=== PATIENT | male | born 1990 | race Caucasian/White ===

== ENCOUNTER 2017-03-06 01:56 | Emergency (ER) | payer MEDICAID, OTHER ==
[~2017-03-06] VITALS: Ht 177.8 cm; Wt 92.0 kg
[2017-03-06 02:05] VITALS: BP 135/76; PULSE 96; RESP 20; TEMP 98.5; O2SAT 96
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
== END 2017-03-06 06:41 | disposition home or self-care (01) ==
LOC: NEPE 01:56
DX: F43.20 Adjustment disorder, unspecified (principal); F17.210 Nicotine dependence, cigarettes, uncomplicated
CPT/HCPCS: 99284

== ENCOUNTER 2017-05-21 21:24 | Emergency (ER) | payer MEDICAID, OTHER ==
[~2017-05-21] VITALS: Ht 177.8 cm; Wt 84.0 kg
[2017-05-21 21:25] VITALS: BP 138/86; PULSE 125; RESP 16; TEMP 99; O2SAT 94
== END 2017-05-22 01:30 | disposition left against medical advice (07) ==
LOC: NED 21:24
DX: Z53.29 Procedure and treatment not carried out because of patient's decision for other reasons (principal)
CPT/HCPCS: 99281

== ENCOUNTER 2017-08-27 08:53 | Emergency (ER) | payer OTHER ==
[~2017-08-27] VITALS: Ht 180.3 cm; Wt 78.0 kg
[2017-08-27 09:47] VITALS: BP 138/83; PULSE 89; RESP 17; TEMP 98; O2SAT 99
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
[2017-08-27 11:08] LABS: AUTOMATED NEUTROPHIL # 5.3 TH/MM3 (1.8-7.7); BASOPHIL % 0.3 % (0.0-2.0); EOSINOPHIL % 0.1 % (0.0-4.0); HEMATOCRIT 49.1 % (39.0-51.0); HEMO FLAGS DIFF FINAL; LYMPH % 26.2 % (9.0-44.0); MEAN CELL VOLUME 86.9 FL (80.0-100.0); MEAN CORPUSCULAR HEMOGLOBIN 28.9 PG (27.0-34.0); MEAN CORPUSCULAR HGB CONC 33.2 % (32.0-36.0); MONO % 5.2 % (0.0-8.0); NEUT % 68.2 % (16.0-70.0); PLATELET COUNT 273 TH/MM3 (150-450); RED BLOOD COUNT 5.66 MIL/MM3 (4.50-5.90); RED CELL DISTRIBUTION WIDTH 13.1 % (11.6-17.2); WHITE BLOOD COUNT 7.7 TH/MM3 (4.0-11.0)
[2017-08-27 11:34] LABS: ALT (GPT) 32 U/L (12-78); ANION GAP 9 MEQ/L (5-15); AST (GOT) 15 U/L (15-37); BICARBONATE 23.8 MEQ/L (21.0-32.0); BLOOD UREA NITROGEN 9 MG/DL (7-18); CHLORIDE 107 MEQ/L (98-107); GLOMERULAR FILTRATION RATE 89 ML/MIN (>89); POTASSIUM 3.3 MEQ/L (3.5-5.1); SODIUM (NA) 140 MEQ/L (136-145)
[2017-08-27 11:36] LABS: ALKALINE PHOSPHATASE 111 U/L (45-117); TOTAL BILIRUBIN ADULT 0.3 MG/DL (0.2-1.0)
[2017-08-27] MEDS ORDERED: LORazepam 2 MG/ML VIAL IM ONE (12:30)
[2017-08-27] MEDS ORDERED: HALOPERIDOL LACTATE 5 MG/ML AMP IM ONE (12:30)
[2017-08-27 14:18] VITALS: BP 122/81; TEMP 97.8
[2017-08-27 18:34] VITALS: BP 116/68; PULSE 57; RESP 18; O2SAT 97
[2017-08-27 22:01] VITALS: BP 114/62; PULSE 79; RESP 18; O2SAT 99
[2017-08-28 02:00] VITALS: BP 108/59; PULSE 54; RESP 18; TEMP 98.7; O2SAT 98
[2017-08-28 06:17] VITALS: BP 118/61; PULSE 65; RESP 18; TEMP 98.1; O2SAT 99
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
--- NOTE | 2017-08-28 10:32 | PD ---
Physical Exam Time Seen by Provider: 10:30 Narrative Please refer to previous providers documentation for details surrounding the patient's current visit. Data Data Last Documented VS Vital Signs Date Time Temp Pulse Resp B/P (MAP) Pulse Ox O2 Delivery O2 Flow Rate FiO2 08/28/17 06:17 98.1 65 18 118/61 (80) 99 Room Air Orders Orders Complete Blood Count With Diff (08/27/17 10:29) Comprehensive Metabolic Panel (08/27/17 10:29) Psych Screen (08/27/17 10:29) Drug Screen, Random Urine (08/27/17 10:29) Haloperidol Inj (Haldol Inj) (08/27/17 12:30) Lorazepam Inj (Ativan Inj) (08/27/17 12:30) Diet Regular Basic (08/27/17 Dinner) Diet Regular Basic (08/28/17 Breakfast) Diet Regular Basic (08/28/17 Lunch) Labs Laboratory Tests Test 08/27/17 10:40 White Blood Count 7.7 TH/MM3 Red Blood Count 5.66 MIL/MM3 Hemoglobin 16.3 GM/DL Hematocrit 49.1 % Mean Corpuscular Volume 86.9 FL Mean Corpuscular Hemoglobin 28.9 PG Mean Corpuscular Hemoglobin Concent 33.2 % Red Cell Distribution Width 13.1 % Platelet Count 273 TH/MM3 Mean Platelet Volume 9.4 FL Neutrophils (%) (Auto) 68.2 % Lymphocytes (%) (Auto) 26.2 % Monocytes (%) (Auto) 5.2 % Eosinophils (%) (Auto) 0.1 % Basophils (%) (Auto) 0.3 % Neutrophils # (Auto) 5.3 TH/MM3 Lymphocytes # (Auto) 2.0 TH/MM3 Monocytes # (Auto) 0.4 TH/MM3 Eosinophils # (Auto) 0.0 TH/MM3 Basophils # (Auto) 0.0 TH/MM3 CBC Comment DIFF FINAL Differential Comment Blood Urea Nitrogen 9 MG/DL Creatinine 1.00 MG/DL Random Glucose 94 MG/DL Total Protein 7.6 GM/DL Albumin 4.1 GM/DL Calcium Level 8.7 MG/DL Alkaline Phosphatase 111 U/L Aspartate Amino Transf (AST/SGOT) 15 U/L Alanine Aminotransferase (ALT/SGPT) 32 U/L Total Bilirubin 0.3 MG/DL Sodium Level 140 MEQ/L Potassium Level 3.3 MEQ/L Chloride Level 107 MEQ/L Carbon Dioxide Level 23.8 MEQ/L Anion Gap 9 MEQ/L Estimat Glomerular Filtration Rate 89 ML/MIN Urine Opiates Screen NEG Urine Barbiturates Screen NEG Urine Amphetamines Screen NEG Urine Benzodiazepines Screen NEG Urine Cocaine Screen POS Urine Cannabinoids Screen NEG MDM Medical Record Reviewed: Yes Supervised Visit with PRAVEENA: No Narrative Course Patient presented to the emergency department under an ExParte. He has been seen and evaluated by psychiatry. His mother has been contacted by psychiatry. He'll be discharged with outpatient resources for drug rehabilitation. With no further medical needs, he'll be discharged at this time. Diagnosis Primary Impression: Substance use disorder Referrals: [facility] (Out patient) Patient Instructions: Cocaine Abuse (ED), General Instructions Additional Instruction: Stop using cocaine and other illegal drugs Follow-up primary care provider Utilize outpatient resources to help with your addiction Return immediately with any acute worsening of symptoms. Med/Other Pt SpecificInfo: No Change to Meds Scripts No Active Prescriptions or Reported Meds Disposition: 01 DISCHARGE HOME Condition: Stable Janet Nobles Aug 28, 2017 10:32
== END 2017-08-28 11:12 | disposition home or self-care (01) ==
LOC: NEPE 08:53 → NEPJ 08-28 11:12
DX: F14.10 Cocaine abuse, uncomplicated (principal); F17.200 Nicotine dependence, unspecified, uncomplicated
CPT/HCPCS: 80053; 80307; 85025; 96372; 99284; J1630; J2060

== ENCOUNTER 2017-12-18 15:35 | Emergency (ER) | payer OTHER ==
[2017-12-18 16:01] VITALS: BP 158/98; PULSE 108; RESP 18; TEMP 97.9; O2SAT 99
[2017-12-18 17:12] LABS: AUTOMATED NEUTROPHIL # 8.1 TH/MM3 (1.8-7.7); BASOPHIL % 0.4 % (0.0-2.0); EOSINOPHIL % 0.3 % (0.0-4.0); HEMATOCRIT 48.6 % (39.0-51.0); HEMOGLOBIN 16.6 GM/DL (13.0-17.0); LYMPH % 16.3 % (9.0-44.0); LYMPHOCYTE # 1.8 TH/MM3 (1.0-4.8); MEAN CELL VOLUME 85.8 FL (80.0-100.0); MEAN CORPUSCULAR HEMOGLOBIN 29.4 PG (27.0-34.0); MEAN CORPUSCULAR HGB CONC 34.2 % (32.0-36.0); MONO % 8.4 % (0.0-8.0); MONOCYTE # 0.9 TH/MM3 (0-0.9); NEUT % 74.6 % (16.0-70.0); PLATELET COUNT 276 TH/MM3 (150-450); RED BLOOD COUNT 5.66 MIL/MM3 (4.50-5.90); RED CELL DISTRIBUTION WIDTH 13.1 % (11.6-17.2); WHITE BLOOD COUNT 10.9 TH/MM3 (4.0-11.0)
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
[2017-12-18 17:29] LABS: ALBUMIN 4.4 GM/DL (3.4-5.0); ALT (GPT) 23 U/L (12-78); AST (GOT) 20 U/L (15-37); BICARBONATE 23.7 MEQ/L (21.0-32.0); BLOOD UREA NITROGEN 11 MG/DL (7-18); CALCIUM 9.1 MG/DL (8.5-10.1); CHLORIDE 105 MEQ/L (98-107); CREATININE 0.93 MG/DL (0.60-1.30); GLOMERULAR FILTRATION RATE 97 ML/MIN (>89); GLUCOSE,RANDOM 92 MG/DL (74-106); SODIUM (NA) 139 MEQ/L (136-145)
[2017-12-18 17:38] LABS: ALKALINE PHOSPHATASE 140 U/L (45-117); TOTAL BILIRUBIN ADULT 0.7 MG/DL (0.2-1.0)
--- NOTE | 2017-12-18 17:51 | PD ---
Data Data Last Documented VS Vital Signs Date Time Temp Pulse Resp B/P (MAP) Pulse Ox O2 Delivery O2 Flow Rate FiO2 12/18/17 16:01 97.9 108 18 158/98 (118) 99 Orders Orders Complete Blood Count With Diff (12/18/17 16:14) Comprehensive Metabolic Panel (12/18/17 16:14) Thyroid Stimulating Hormone (12/18/17 16:14) Psych Screen (12/18/17 16:14) Drug Screen, Random Urine (12/18/17 16:14) Alcohol (Ethanol) (12/18/17 16:14) Labs Laboratory Tests Test 12/18/17 16:10 White Blood Count 10.9 TH/MM3 Red Blood Count 5.66 MIL/MM3 Hemoglobin 16.6 GM/DL Hematocrit 48.6 % Mean Corpuscular Volume 85.8 FL Mean Corpuscular Hemoglobin 29.4 PG Mean Corpuscular Hemoglobin Concent 34.2 % Red Cell Distribution Width 13.1 % Platelet Count 276 TH/MM3 Mean Platelet Volume 9.0 FL Neutrophils (%) (Auto) 74.6 % Lymphocytes (%) (Auto) 16.3 % Monocytes (%) (Auto) 8.4 % Eosinophils (%) (Auto) 0.3 % Basophils (%) (Auto) 0.4 % Neutrophils # (Auto) 8.1 TH/MM3 Lymphocytes # (Auto) 1.8 TH/MM3 Monocytes # (Auto) 0.9 TH/MM3 Eosinophils # (Auto) 0.0 TH/MM3 Basophils # (Auto) 0.0 TH/MM3 CBC Comment DIFF FINAL Differential Comment Blood Urea Nitrogen 11 MG/DL Creatinine 0.93 MG/DL Random Glucose 92 MG/DL Total Protein 8.0 GM/DL Albumin 4.4 GM/DL Calcium Level 9.1 MG/DL Alkaline Phosphatase 140 U/L Aspartate Amino Transf (AST/SGOT) 20 U/L Alanine Aminotransferase (ALT/SGPT) 23 U/L Total Bilirubin 0.7 MG/DL Sodium Level 139 MEQ/L Potassium Level 3.7 MEQ/L Chloride Level 105 MEQ/L Carbon Dioxide Level 23.7 MEQ/L Anion Gap 10 MEQ/L Estimat Glomerular Filtration Rate 97 ML/MIN Thyroid Stimulating Hormone 3rd Gen 1.430 uIU/ML Ethyl Alcohol Level 17 MG/DL [facility] Supervised Visit with PRAVEENA: No Narrative Course The patient was initially evaluated by the previous provider and sent out to me at the beginning of my shift pending labs for medical clearance for psychiatric evaluation. See her note for further details. CBC and CMP were reviewed. Alcohol level is 17. The patient is sleeping yet easily arousable. He does not provide any history. The patient is medically cleared for psychiatric evaluation. Diagnosis Primary Impression: Medical clearance for psychiatric admission Scripts No Active Prescriptions or Reported Meds Braeden Seo MD Dec 18, 2017 17:51
[2017-12-19 02:00] VITALS: BP 118/59; PULSE 57; RESP 17; O2SAT 98
[2017-12-19 06:35] VITALS: BP 103/56; PULSE 66; RESP 16; O2SAT 98
--- NOTE | 2017-12-19 08:47 | PD ---
Physical Exam Date Seen by Provider: Dec 19, 2017 Time Seen by Provider: 08:45 Narrative 27-year-old male previously medically cleared for psychiatric evaluation. Patient was seen by Dr. Galaviz and found to be psychiatrically stable for discharge. Patient will follow-up as per psychiatric note Data Data Last Documented VS Vital Signs Date Time Temp Pulse Resp B/P (MAP) Pulse Ox O2 Delivery O2 Flow Rate FiO2 12/19/17 06:35 66 16 103/56 (72) 98 Room Air 12/18/17 16:01 97.9 Orders Orders Complete Blood Count With Diff (12/18/17 16:14) Comprehensive Metabolic Panel (12/18/17 16:14) Thyroid Stimulating Hormone (12/18/17 16:14) Psych Screen (12/18/17 16:14) Drug Screen, Random Urine (12/18/17 16:14) Alcohol (Ethanol) (12/18/17 16:14) Diet Regular Basic (12/19/17 Breakfast) Labs Laboratory Tests Test 12/18/17 16:10 12/18/17 21:25 White Blood Count 10.9 TH/MM3 Red Blood Count 5.66 MIL/MM3 Hemoglobin 16.6 GM/DL Hematocrit 48.6 % Mean Corpuscular Volume 85.8 FL Mean Corpuscular Hemoglobin 29.4 PG Mean Corpuscular Hemoglobin Concent 34.2 % Red Cell Distribution Width 13.1 % Platelet Count 276 TH/MM3 Mean Platelet Volume 9.0 FL Neutrophils (%) (Auto) 74.6 % Lymphocytes (%) (Auto) 16.3 % Monocytes (%) (Auto) 8.4 % Eosinophils (%) (Auto) 0.3 % Basophils (%) (Auto) 0.4 % Neutrophils # (Auto) 8.1 TH/MM3 Lymphocytes # (Auto) 1.8 TH/MM3 Monocytes # (Auto) 0.9 TH/MM3 Eosinophils # (Auto) 0.0 TH/MM3 Basophils # (Auto) 0.0 TH/MM3 CBC Comment DIFF FINAL Differential Comment Blood Urea Nitrogen 11 MG/DL Creatinine 0.93 MG/DL Random Glucose 92 MG/DL Total Protein 8.0 GM/DL Albumin 4.4 GM/DL Calcium Level 9.1 MG/DL Alkaline Phosphatase 140 U/L Aspartate Amino Transf (AST/SGOT) 20 U/L Alanine Aminotransferase (ALT/SGPT) 23 U/L Total Bilirubin 0.7 MG/DL Sodium Level 139 MEQ/L Potassium Level 3.7 MEQ/L Chloride Level 105 MEQ/L Carbon Dioxide Level 23.7 MEQ/L Anion Gap 10 MEQ/L Estimat Glomerular Filtration Rate 97 ML/MIN Thyroid Stimulating Hormone 3rd Gen 1.430 uIU/ML Ethyl Alcohol Level 17 MG/DL Urine Opiates Screen POS Urine Barbiturates Screen NEG Urine Amphetamines Screen NEG Urine Benzodiazepines Screen POS Urine Cocaine Screen POS Urine Cannabinoids Screen NEG MDM Medical Record Reviewed: Yes Supervised Visit with PRAVEENA: Yes Narrative Course 27-year-old male previously medically cleared for psychiatric evaluation. Patient was seen by Dr. Galaviz and found to be psychiatrically stable for discharge. Patient will follow-up as per psychiatric note Diagnosis Primary Impression: Medical clearance for psychiatric admission Scripts No Active Prescriptions or Reported Meds Disposition: DISCHARGE HOME Condition: Stable Jonathan Chen Dec 19, 2017 08:47
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
== END 2017-12-19 11:39 | disposition home or self-care (01) ==
LOC: NEDAMB 15:35 → NEPJ 12-19 11:39
DX: F30.9 Manic episode, unspecified (principal); F11.90 Opioid use, unspecified, uncomplicated; F19.90 Other psychoactive substance use, unspecified, uncomplicated; F14.90 Cocaine use, unspecified, uncomplicated; F41.9 Anxiety disorder, unspecified; F32.9 Major depressive disorder, single episode, unspecified; F17.200 Nicotine dependence, unspecified, uncomplicated; Z88.0 Allergy status to penicillin
CPT/HCPCS: 80053; 80307; 84443; 85025; 99283